=== PATIENT | male | born 1975 | race African-American/Black ===

== ENCOUNTER 2020-06-22 18:38 | Emergency (ER) | payer MEDICAID, OTHER ==
[~2020-06-22] VITALS: Ht 190.5 cm; Wt 137.0 kg
[2020-06-22] MEDS ORDERED: KETOROLAC 30MG/ML VIAL IV STA (18:49)
[2020-06-22] MEDS ORDERED: MORPHINE SULFATE 4 MG/ML CPJ (NOT FOR IM USE) IV ONE (19:00)
[2020-06-22] MEDS ORDERED: SODIUM CHLORIDE 0.9% 1000ML BAG (SEPSIS BOLUS) IV ONE (19:00)
[2020-06-22] MEDS ORDERED: CLINDAMYCIN 900 MG in DEXTROSE 5% WATER 50 ML IV ONE (19:00)
[2020-06-22] MEDS ORDERED: ONDANSETRON HCL 4MG/2ML INJ IV ONE (19:00)
[2020-06-22] MEDS ORDERED: PIPERACILLIN SODIUM/TAZOBACTAM 4.5 G in DEXT 5% WATER 100 ML IV STA (19:27)
[2020-06-22] MEDS ORDERED: DEXAMETHASONE 10 MG/ML VIAL IV ONE (19:30)
[2020-06-22 19:51] LABS: BASOPHILS % 0.3 % (0.0-2.0); EOSINOPHILS % 0.2 % (0.0-5.0); MEAN CORPUSCULAR HEMOGLOBIN 29.7 pg (28.0-32.0); MEAN CORPUSCULAR VOLUME 85.7 fL (80.0-94.0); MEAN PLATELET VOLUME 9.2 fl (7.4-10.4); MONOCYTES % 11.7 % (2.0-8.0); NEUTROPHILS % 74.8 % (40.0-76.0); PLATELET 232 x1000/uL (130-400); RED BLOOD CELL COUNT 5.37 mill/uL (4.7-6.1); RED CELL DISTRIBUTION WIDTH 13.5 % (11.6-14.6)
[2020-06-22 19:58] LABS: CHLORIDE 101 mEq/L (98-107)
[2020-06-22 20:00] LABS: PROTHROMBIN TIME 10.8 sec (9.6-11.0)
[2020-06-22] MEDS ORDERED: CLINDAMYCIN 900 MG PREMIX 50 ML IV NR (20:00)
[2020-06-22 20:04] LABS: MONOTEST NEGATIVE (NEGATIVE)
[2020-06-22] MEDS ORDERED: HYDR-4346 MT (22:47)
[2020-06-22] MEDS ORDERED: IBUP-2030 MT (22:47)
[2020-06-22] MEDS ORDERED: AMOX-424 MT (22:47)
[2020-06-22] MEDS ORDERED: P20 MT (22:47)
[2020-06-22] MEDS ORDERED: CLIN300C12 MT (22:47)
[2020-06-22 22:59] LABS: CLARITY URINE CLEAR (CLEAR); COLOR URINE DK YELLOW (YELLOW); KETONES URINE TRACE (NEGATIVE); LEUKOCYTE ESTERASE URINE NEGATIVE (NEGATIVE); NITRITE URINE NEGATIVE (NEGATIVE); OCCULT BLOOD URINE NEGATIVE (NEGATIVE); PH URINE 6.5 (4.5-8.0); PROTEIN URINE 2+ (NEGATIVE); SPECIFIC GRAVITY URINE >1.040 (1.005-1.030); UROBILINOGEN URINE 0.2 E.U./dL (0.2-1.0)
[2020-06-22 23:15] VITALS: BP 147/89
[2020-06-22] MEDS ORDERED: IOHEXOL-300 100 ML BOTTLE ONE (23:30)
== END 2020-06-22 23:41 | disposition home or self-care (01) ==
LOC: ER 18:38
DX: J03.90 Acute tonsillitis, unspecified (principal)
CPT/HCPCS: 36415; 70491; 71045; 80053; 81003; 83605; 84145; 84484; 85025; 85610; 86308; 87040; 87070; 87086; 87430; 93005; 96365; 96366; 96367; 96375; 99285; J1100; J1885; J2270; J2405; J2543; J3490; J7040; J7060; Q9967; Z7610

== ENCOUNTER 2021-01-03 17:19 | Emergency (ER) | payer OTHER ==
[~2021-01-03] VITALS: Ht 190.5 cm; Wt 139.0 kg
[~2021-01-03 17:19] MED LIST: AMOX-424 MT; CLIN300C12 MT; HYDR-4346 MT; IBUP-2030 MT; P20 MT
[2021-01-03 17:23] VITALS: BP 133/94
[2021-01-03] MEDS ORDERED: IBUPROFEN 400MG TABLET PO ONE (20:30)
[2021-01-03] MEDS ORDERED: IBUP-2028 MT (20:34)
[2021-01-03] MEDS ORDERED: CLIN300C12 MT (20:34)
== END 2021-01-03 20:45 | disposition home or self-care (01) ==
LOC: ER 17:19
DX: T31.0 Burns involving less than 10% of body surface (principal); T79.9XXA Unspecified early complication of trauma, initial encounter
CPT/HCPCS: 99283

== ENCOUNTER 2022-06-10 11:05 | Emergency (ER) | payer MEDICAID, OTHER ==
[~2022-06-10] VITALS: Ht 190.5 cm; Wt 136.0 kg
[~2022-06-10 11:05] MED LIST changes: +CLIN-194 MT; -CLIN300C12 MT; +IBUP-2028 MT
[2022-06-10] MEDS ORDERED: KETOROLAC 60MG/2ML VIAL IM ONE (15:30)
[2022-06-10] MEDS ORDERED: NAPR-681 MT (15:38)
[2022-06-10 16:13] VITALS: BP 183/118
== END 2022-06-10 17:27 | disposition home or self-care (01) ==
LOC: ER 11:05
DX: S49.92XA Unspecified injury of left shoulder and upper arm, initial encounter (principal); X58.XXXA Exposure to other specified factors, initial encounter; Y93.89 Activity, other specified; Y92.89 Other specified places as the place of occurrence of the external cause; Y99.8 Other external cause status; Z79.899 Other long term (current) drug therapy; I10 Essential (primary) hypertension
CPT/HCPCS: 73030; 96372; 99283; J1885; Z7610

== ENCOUNTER 2023-09-12 17:50 | Emergency (ER) | payer OTHER ==
[~2023-09-12] VITALS: Ht 190.5 cm; Wt 127.0 kg
[~2023-09-12 17:50] MED LIST changes: +NAPR-681 MT
[2023-09-12 18:03] VITALS: TEMP 98.5; O2SAT 99
[2023-09-12] MEDS ORDERED: KETOROLAC 15MG/ML VIAL IM ONE (18:45)
[2023-09-12] MEDS ORDERED: METH-653 MT (19:14)
[2023-09-12 19:45] VITALS: BP 155/105; PULSE 73; RESP 18
[2023-09-12] MEDS: KETOROLAC 30MG/ML VIAL IM ONE (19:45)
== END 2023-09-12 19:50 | disposition home or self-care (01) ==
LOC: ER 17:50
DX: M54.50 Low back pain, unspecified (principal); Z88.1 Allergy status to other antibiotic agents; Z79.899 Other long term (current) drug therapy; Z98.890 Other specified postprocedural states
CPT/HCPCS: 96372; 99283; J1885; Z7610

== ENCOUNTER 2024-05-19 20:22 | Emergency (ER) | payer MEDICAID ==
[~2024-05-19 20:22] MED LIST changes: +METH-653 MT
[2024-05-19] MEDS: DIPHENHYDRAMINE 50MG/ML VIAL IM PRN (20:58)
[2024-05-19] MEDS: ZIPRASIDONE MESYLATE 20MG/VIAL IM ONE (20:58)
[2024-05-19] MEDS: LORAZEPAM 2MG/ML INJ IM ONE (20:58)
[2024-05-19 22:06] LABS: *AMPHETAMINES SCREEN URINE PRESUMPTIVE POSITIVE (NEGATIVE); *BARBITURATES SCREEN URINE NEGATIVE (NEGATIVE); *BENZODIAZEPINES SCREEN URINE NEGATIVE (NEGATIVE); *COCAINE SCREEN URINE PRESUMPTIVE POSITIVE (NEGATIVE); CANNABINOID URINE SCREEN PRESUMPTIVE POSITIVE (NEGATIVE); ECSTASY MDMA SCREEN URINE CONF.TEST INDICATED (NEGATIVE); METHADONE URINE SCREEN NEGATIVE (NEGATIVE); OPIATES URINE SCREEN NEGATIVE (NEGATIVE); PHENCYCLIDINE URINE SCREEN NEGATIVE (NEGATIVE)
[2024-05-19 22:07] LABS: BASOPHILS % 0.1 % (0.0-2.0); EOSINOPHILS % 0.1 % (0.0-5.0); HEMATOCRIT. 43.1 % (42.0-52.0); HEMOGLOBIN. 13.9 g/dL (14.0-18.0); MEAN CORPUSCULAR HEMOGLOBIN 27.3 pg (28.0-32.0); MEAN CORPUSCULAR HGB CONC 32.2 g/dL (31.0-37.0); MEAN CORPUSCULAR VOLUME 84.6 fL (80.0-94.0); MEAN PLATELET VOLUME 9.3 fl (7.4-10.4); MONOCYTES % 9.4 % (2.0-8.0); NEUTROPHILS % 77.4 % (40.0-76.0); PLATELET 193 x1000/uL (130-400); RED CELL DISTRIBUTION WIDTH 13.9 % (11.6-14.6); WHITE BLOOD COUNT 8.7 x1000/uL (4.5-11.0)
[2024-05-19 22:13] LABS: CHLORIDE 102 mEq/L (98-107); POTASSIUM 3.3 mEq/L (3.5-5.1); SODIUM 139 mEq/L (136-145)
[2024-05-19 22:14] LABS: CALCIUM 9.6 mg/dL (8.7-10.4); CARBON DIOXIDE 28 mEq/L (21-32)
[2024-05-19 22:19] LABS: CREATININE 1.1 mg/dL (0.6-1.3); GLUCOSE 120 mg/dL (70-105); UREA NITROGEN BLOOD 9 mg/dL (9-23)
[2024-05-19 22:21] LABS: ACETAMINOPHEN < 2 ug/mL (10-30)
[2024-05-19 22:25] LABS: ETHANOL BLOOD < 10 mg/dL (<10)
[2024-05-19 22:35] LABS: CLARITY URINE CLOUDY (CLEAR); COLOR URINE DARK YELLOW (YELLOW); GLUCOSE URINE NEGATIVE (NEGATIVE); KETONES URINE TRACE (NEGATIVE); LEUKOCYTE ESTERASE URINE NEGATIVE (NEGATIVE); NITRITE URINE NEGATIVE (NEGATIVE); OCCULT BLOOD URINE TRACE (NEGATIVE); PH URINE 5.5 (4.5-8.0); PROTEIN URINE 3+ (NEGATIVE); SPECIFIC GRAVITY URINE 1.041 (1.005-1.030)
[2024-05-19 22:51] LABS: BACTERIA URINE 2+; CALCIUM OXALATE CRYSTALS URINE 2+ /lpf; RBC URINE 0-2 /hpf (0-2); SQUAMOUS EPITHELIAL CELL URINE 1+ /lpf (RARE/1+); WBC URINE 0-2 /hpf (0-2)
[2024-05-20 14:30] VITALS: O2SAT 100
[2024-05-20 16:53] VITALS: BP 136/70; PULSE 84; RESP 20; TEMP 36.9
== END 2024-05-20 17:00 | disposition home or self-care (01) ==
LOC: ER 20:22
DX: F19.10 Other psychoactive substance abuse, uncomplicated (principal); F17.200 Nicotine dependence, unspecified, uncomplicated; F20.9 Schizophrenia, unspecified; M54.30 Sciatica, unspecified side; F31.9 Bipolar disorder, unspecified; Z88.2 Allergy status to sulfonamides; Z88.1 Allergy status to other antibiotic agents; Z79.899 Other long term (current) drug therapy
CPT/HCPCS: 80305; 80048; 81003; 80307; 80329; 80320; 85025; 36415; 96372; 99291; J1200; J2060; J3486; Z7610; G0480